=== PATIENT | male | born 1980 | race Caucasian/White ===

== ENCOUNTER 2020-06-13 00:55 | Emergency (ER) | payer SELFPAY ==
[~2020-06-13] VITALS: Ht 165.1 cm; Wt 69.0 kg
[2020-06-13] MEDS ORDERED: IBUPROFEN 400MG TABLET PO ONE (01:30)
[2020-06-13] MEDS ORDERED: ACETAMINOPHEN 325MG TABLET PO ONE (01:30)
[2020-06-13] MEDS ORDERED: TOPUD MT (01:52)
[2020-06-13 02:28] VITALS: BP 145/84
== END 2020-06-13 02:31 | disposition home or self-care (01) ==
LOC: ER 00:55
DX: M79.18 Myalgia, other site (principal)
CPT/HCPCS: 71045; 99283